=== PATIENT | male | born 1945 | race Caucasian/White ===

== ENCOUNTER 2020-05-26 05:39 | Inpatient (IN) ==
[2020-05-26] MEDS ORDERED: Lactated Ringers 1000 ml BAG 1,000 ML IV SCH ×2 (06:00→13:00)
[2020-05-26] MEDS ORDERED: Sodium Citrate/Citric Acid LIQ 15 ML UDC PO ONE (06:00)
[2020-05-26] MEDS ORDERED: Buffered Lidocaine 1% SYRIN 1 ml INTRADERM ONE (06:00)
[2020-05-26] MEDS ORDERED: Lidocaine 1% MPF 5 ML VIAL ONE (07:18)
[2020-05-26] MEDS ORDERED: ROPIVACAINE 5 MG/ML 30 ML BTL (0.5%) ONE (07:18)
[2020-05-26] MEDS ORDERED: Midazolam 5 mg/5 ml VIAL 1 mg/ml 5 ml VIAL (5 mg) ONE (07:26)
[2020-05-26] MEDS ORDERED: Naloxone 0.4 mg VIAL 0.4 mg/ml 1 ml VIAL IV PRN (09:32)
[2020-05-26] MEDS ORDERED: diPHENhydraMINE IV 50 MG/ML 1 ml VIAL (BENADRYL) IV PRN ×2 (09:32→12:01)
[2020-05-26] MEDS ORDERED: Ondansetron 4 mg VIAL 2 MG/ML 2 ml VIAL IV PRN ×2 (09:32→12:01)
[2020-05-26] MEDS ORDERED: HYDROmorphone 1 MG/1 ML SYRINGE IV PRN (09:32)
[2020-05-26] MEDS ORDERED: fentaNYL 100 mcg/2 ml 50 MCG/ML VIAL IV PRN (09:32)
[2020-05-26] MEDS ORDERED: DiMENhydriNATE IV 50 mg/ml 1 ml VIAL IV PUSH PRN (09:32)
[2020-05-26] MEDS ORDERED: oxyCODONE/Acetamin 5/325 mg TAB PO PRN (12:01)
[2020-05-26] MEDS ORDERED: Lactulose 30 ml UDC PO PRN (12:01)
[2020-05-26] MEDS ORDERED: Magnesium Hydroxide LIQ 30 ML UDC PO PRN (12:01)
[2020-05-26] MEDS ORDERED: Ondansetron ODT 4 mg TAB 4 MG TAB PO PRN (12:01)
[2020-05-26] MEDS ORDERED: diPHENhydraMINE 25 mg TAB PO PRN (12:01)
[2020-05-26] MEDS ORDERED: Morphine 2 MG/ML SYRINGE IV PRN (12:01)
[2020-05-26] MEDS: ceFAZolin 1 GM ADVAN 1 GM in NS 0.9% 50 ML 50 ML IVPB SCH (16:54)
[2020-05-26] MEDS: Calcium/Vitamin D TAB 250/125 TAB PO SCH (21:08)
[2020-05-26] MEDS: Magnesium Hydroxide LIQ 30 ML UDC PO SCH (21:11)
[2020-05-27] MEDS: ceFAZolin 1 GM ADVAN 1 GM in NS 0.9% 50 ML 50 ML IVPB SCH ×2 (00:37→08:26)
[2020-05-27 05:32] LABS: Hematocrit 36 % (42-52); Hemoglobin 12.2 g/dL (14.0-18.0); Mean Platelet Volume 9.3 fL (7.4-10.4); Platelet Count 214 10^3/uL (150-450)
[2020-05-27 05:46] LABS: BUN/Creatinine Ratio 18.8 (8-20); Calcium 8.9 mg/dL (8.6-10.3); EGFR African American 106.6 (>60); EGFR Non-African American 88.1 (>60); Potassium 4.3 mmol/L (3.5-5.0)
[2020-05-27] MEDS: Calcium/Vitamin D TAB 250/125 TAB PO SCH (08:28)
[2020-05-27] MEDS: Magnesium Hydroxide LIQ 30 ML UDC PO SCH (08:30)
[2020-05-27] MEDS ORDERED: Cholecalciferol (VIT D3) 1,000 unit TAB PO SCH (09:00)
[2020-05-27] MEDS ORDERED: Aspirin EC 81 mg TAB.EC (enteric coated) PO SCH (09:00)
[2020-05-27] MEDS ORDERED: Vitamin THERAPEUTIC TAB PO SCH (09:00)
[2020-05-27 11:06] VITALS: BP 109/66
== END 2020-05-27 11:50 | disposition home or self-care (01) | DRG 483 ==
LOC: AA 05:39 → SSU 13:27
PROVIDERS: ADMIT Orthopaedic Surgery; ATTEND Orthopaedic Surgery

== ENCOUNTER 2022-04-12 06:26 | Inpatient (IN) ==
[~2022-04-12 06:26] MED LIST: Buffered Lidocaine 1% SYRIN 1 ml INTRADERM ONE; Lactated Ringers 1000 ml BAG 1,000 ML IV SCH
[2022-04-12] MEDS ORDERED: Rocuronium 50 mg VIAL 10 mg/ml 5 ml VIAL (50 mg) ONE ×2 (07:06→12:41)
[2022-04-12] MEDS ORDERED: Ondansetron 4 mg VIAL 2 MG/ML 2 ml VIAL ONE (07:07)
[2022-04-12] MEDS ORDERED: Sevoflurane BOTTLE ONE (07:07)
[2022-04-12] MEDS ORDERED: Dexamethasone IV 4 MG/ML VIAL 1 ml VIAL ONE (07:07)
[2022-04-12] MEDS ORDERED: Propofol 10 MG/ML 20 ML BTL ONE (07:07)
[2022-04-12] MEDS ORDERED: Lidocaine 2% PF 5 ML VIAL ONE (07:07)
[2022-04-12] MEDS ORDERED: ceFAZolin 2 GM PREMIX 2 GM/50 ML BAG ONE (07:13)
[2022-04-12] MEDS ORDERED: Midazolam 2 mg/2 ml VIAL 1 mg/ml 2 ml VIAL (2 mg) ONE ×2 (07:25→09:28)
[2022-04-12] MEDS ORDERED: fentaNYL 100 mcg/2 ml 50 MCG/ML VIAL ONE (07:25)
[2022-04-12] MEDS ORDERED: Bupivacaine 0.25% SDV 30 ML ONE (09:12)
[2022-04-12] MEDS ORDERED: Lidocaine 2% PF 10 ML AMP (OR) ONE (09:12)
[2022-04-12] MEDS ORDERED: Bupivacaine 0.5% SDV PF 30ML VIAL ONE (09:12)
[2022-04-12] MEDS ORDERED: Phenylephrine IV 10 MG/ML 1 ml VIAL ONE (11:31)
[2022-04-12] MEDS ORDERED: Sterile Water for Inj 10 ML ONE (11:31)
[2022-04-12] MEDS ORDERED: Phenylephrine 40 mcg/mL 10mL (400mcg) SYRINGE ONE (11:31)
[2022-04-12] MEDS ORDERED: Esmolol 10 MG/ML 10 ML (100 mg) ONE (11:31)
[2022-04-12] MEDS ORDERED: Acetaminophen IV 1 GM/100ML 1,000 MG/100 ML BAG IV ONE (11:43)
[2022-04-12] MEDS ORDERED: Vancomycin 1,000 MG VIAL ONE ×2 (11:44→13:05)
[2022-04-12] MEDS ORDERED: Ondansetron ODT 4 mg TAB 4 MG TAB PO PRN (14:13)
[2022-04-12] MEDS ORDERED: Ondansetron 4 mg VIAL 2 MG/ML 2 ml VIAL IV PRN (14:13)
[2022-04-12] MEDS ORDERED: Lactulose 30 ml UDC PO PRN (14:13)
[2022-04-12] MEDS ORDERED: Magnesium Hydroxide LIQ 30 ML UDC PO PRN (14:13)
[2022-04-12] MEDS ORDERED: Morphine 2 MG/ML SYRINGE IV PRN (14:13)
[2022-04-12] MEDS ORDERED: Lactated Ringers 1000 ml BAG 1,000 ML IV SCH (15:00)
[2022-04-12 16:11] LABS: ABS Basophils 0.1 10^3/ul (0-0.2); ABS Lymphocytes 0.4 10^3/ul (1.0-4.8); ABS Monocytes 0.4 10^3/ul (0-0.8); ABS Neutrophils 10.8 10^3/ul (1.5-7.7); Eosinophil % 0.1 %; Hematocrit 37 % (42-52); Hemoglobin 12.1 g/dL (14.0-18.0); Lymphocyte % 3.8 %; Mean Corpuscular HGB Conc 33 g/dL (31-36); Mean Corpuscular Hemoglobin 31 pg (27-31); Mean Corpuscular Volume 96 fL (80-94); Mean Platelet Volume 7.9 fL (7.4-10.4); Platelet Count 192 10^3/uL (150-450); Red Blood Count 3.86 10^6 /uL (4.18-5.48); Red Cell Distribution Width 15 % (10-15); White Blood Count 11.7 10^3/uL (3.5-10.8)
[2022-04-12 16:45] LABS: Calcium 8.3 mg/dL (8.6-10.3); Magnesium 1.9 mg/dL (1.9-2.7); eGFR CKD-EPI 88.5 (>60)
[2022-04-12] MEDS: ceFAZolin 1 GM in Dextrose 1 GM/50 ML BAG IVPB SCH (18:35)
[2022-04-12] MEDS: Magnesium Hydroxide LIQ 30 ML UDC PO SCH (20:10)
[2022-04-12] MEDS: Dextran 70/Hypromellose Tears Eye Drops 15 ml BTL (for Artificials Tears) BOTH EYES PRN (21:19)
[2022-04-13] MEDS: Dextran 70/Hypromellose Tears Eye Drops 15 ml BTL (for Artificials Tears) BOTH EYES PRN ×3 (01:17→12:01)
[2022-04-13] MEDS: Lactated Ringers 1000 ml BAG 1,000 ML IV SCH ×2 (01:23→06:49)
[2022-04-13] MEDS: ceFAZolin 1 GM in Dextrose 1 GM/50 ML BAG IVPB SCH ×2 (02:46→12:01)
[2022-04-13 06:51] LABS: Hematocrit 37 % (42-52); Hemoglobin 12.5 g/dL (14.0-18.0); Mean Platelet Volume 8.5 fL (7.4-10.4); Platelet Count 182 10^3/uL (150-450)
[2022-04-13 07:04] LABS: Calcium 8.7 mg/dL (8.6-10.3); Potassium 4.3 mmol/L (3.5-5.0); eGFR CKD-EPI 94.7 (>60)
[2022-04-13] MEDS: Magnesium Hydroxide LIQ 30 ML UDC PO SCH (08:52)
[2022-04-13] MEDS ORDERED: Cholecalciferol (VIT D3) 1,000 unit TAB PO SCH (09:00)
[2022-04-13] MEDS ORDERED: Vitamin THERAPEUTIC TAB PO SCH (09:00)
[2022-04-13 12:50] VITALS: BP 137/68
[2022-04-15] MEDS ORDERED: Aspirin EC 81 mg TAB.EC (enteric coated) PO SCH (09:00)
== END 2022-04-13 14:50 | disposition home health service (06) | DRG 483 ==
LOC: AA 06:26 → OBSVTOIN 06:26 → INTOOBSV 06:26 → MEDTELE 14:13
PROVIDERS: ADMIT Orthopaedic Surgery; ATTEND Orthopaedic Surgery

== ENCOUNTER 2023-06-15 07:30 | Inpatient (IN) ==
[2023-07-11] MEDS ORDERED: ceFAZolin 2 GM in NS PREMIX 2 GM/100 ML BAG IVPB ONE (06:03)
[2023-07-11] MEDS ORDERED: Tranexamic Acid 1 GM/100ML BAG 2,000 MG/200 ML BAG IV ONE (06:03)
[2023-07-11] MEDS: Lactated Ringers 1000 ml BAG 1,000 ML IV SCH ×2 (06:22→13:04)
[2023-07-11 06:51] LABS: Rapid COVID-19 Molecular Undetected (Undetected)
[2023-07-11] MEDS ORDERED: Vancomycin 1,000 MG VIAL ONE (07:05)
[2023-07-11] MEDS ORDERED: Midazolam 2 mg/2 ml VIAL 1 mg/ml 2 ml VIAL (2 mg) ONE (07:17)
[2023-07-11] MEDS ORDERED: fentaNYL 100 mcg/2 ml 50 MCG/ML VIAL ONE ×3 (07:17→10:49)
[2023-07-11] MEDS ORDERED: Phenylephrine IV 10 MG/ML 1 ml VIAL ONE (07:19)
[2023-07-11] MEDS ORDERED: Lidocaine 2% PF 5 ML VIAL ONE (07:19)
[2023-07-11] MEDS ORDERED: Rocuronium 50 mg VIAL 10 mg/ml 5 ml VIAL (50 mg) ONE (07:33)
[2023-07-11] MEDS ORDERED: Propofol 10 MG/ML 20 ML BTL ONE (07:33)
[2023-07-11] MEDS ORDERED: HYDROmorphone 0.5 MG/0.5 ML SYRINGE ONE (08:08)
[2023-07-11] MEDS ORDERED: Naloxone 0.4 mg VIAL 0.4 mg/ml 1 ml VIAL IV PRN ×2 (09:23)
[2023-07-11] MEDS ORDERED: Metoclopramide 5 MG/ML VIAL (10 mg) IV PRN (09:23)
[2023-07-11] MEDS ORDERED: Ondansetron 4 mg VIAL 2 MG/ML 2 ml VIAL IV PRN ×2 (09:23→10:44)
[2023-07-11] MEDS ORDERED: Magnesium Hydroxide LIQ 30 ML UDC PO PRN (10:44)
[2023-07-11] MEDS ORDERED: Ondansetron ODT 4 mg TAB 4 MG TAB PO PRN (10:44)
[2023-07-11] MEDS ORDERED: Morphine 2 MG/ML SYRINGE IV PRN (10:44)
[2023-07-11] MEDS ORDERED: Lactulose 30 ml UDC PO PRN (10:44)
[2023-07-11] MEDS: fentaNYL 100 mcg/2 ml 50 MCG/ML VIAL IV PRN (10:53)
[2023-07-11] MEDS: Buffered Lidocaine 1% SYRIN 1 ml INTRADERM ONE (13:07)
[2023-07-11] MEDS: Scopolamine 1 mg/72hr PATCH TRANSDERM ONE (13:08)
[2023-07-11] MEDS: Aspirin EC 81 mg TAB.EC (enteric coated) PO SCH (14:23)
[2023-07-11] MEDS: ceFAZolin 1 GM ADVAN 1 GM in NS 0.9% 50 ML 50 ML IVPB SCH (15:09)
[2023-07-11] MEDS: Magnesium Hydroxide LIQ 30 ML UDC PO SCH (20:18)
[2023-07-12 06:22] LABS: Hematocrit 31.7 % (38-53); Hemoglobin 10.6 g/dL (13.2-16.3); Mean Platelet Volume 8.5 fL (7.5-11.2); Platelet Count 195 10^3/uL (150-450)
[2023-07-12 06:38] LABS: Calcium 8.4 mg/dL (8.6-10.3); Creatinine, Serum 0.54 mg/dL (0.67-1.17); Potassium 4.2 mmol/L (3.5-5.0)
[2023-07-12] MEDS: Vitamin THERAPEUTIC TAB PO SCH (07:39)
[2023-07-12 14:15] VITALS: BP 134/55
== END 2023-07-12 15:07 | disposition home or self-care (01) | DRG 470 ==
LOC: INTOOBSV 07-11 05:34 → OBSVTOIN 07-11 05:34 → AA 07-11 05:34 → SSU 07-11 10:44
PROVIDERS: ADMIT Orthopaedic Surgery; ATTEND Orthopaedic Surgery